=== PATIENT | female | born 1970 | race Caucasian/White ===

== ENCOUNTER 2021-07-21 13:35 | Emergency (ER) | payer MEDICARE, OTHER, MEDICAID ==
[2021-07-21] MEDS ORDERED: CYCLOBENZAPRINE10 MG PO (14:03)
== END 2021-07-21 14:40 | disposition home or self-care (01) ==
LOC: ER1 13:35
DX: M62.838 Other muscle spasm (principal); F17.210 Nicotine dependence, cigarettes, uncomplicated
CPT/HCPCS: 96372; 99283; J1885